=== PATIENT | female | born 1945 | race Caucasian/White ===

== ENCOUNTER 2021-06-01 13:27 | Emergency (ER) | payer BC, OTHER ==
[~2021-06-01] VITALS: Ht 157.5 cm; Wt 79.4 kg
[2021-06-01 13:50] VITALS: BP 130/76
== END 2021-06-01 16:35 | disposition home or self-care (01) ==
LOC: ER 13:27 → EDBD 13:27 → ER 16:35
DX: S20.211A Contusion of right front wall of thorax, initial encounter (principal); I31.3 Pericardial effusion (noninflammatory); K80.20 Calculus of gallbladder without cholecystitis without obstruction; I12.0 Hypertensive chronic kidney disease with stage 5 chronic kidney disease or end stage renal disease; E11.22 Type 2 diabetes mellitus with diabetic chronic kidney disease; N18.6 End stage renal disease; E78.5 Hyperlipidemia, unspecified; Z90.710 Acquired absence of both cervix and uterus; W18.09XA Striking against other object with subsequent fall, initial encounter; Y93.89 Activity, other specified; Y92.89 Other specified places as the place of occurrence of the external cause; Y99.8 Other external cause status
CPT/HCPCS: 71045; 71250